=== PATIENT | male | born 1940 | race Caucasian/White ===

== ENCOUNTER → 2018-08-13 05:00 | Outpatient (REF) | payer MEDICARE, SELFPAY ==
[2018-08-13 07:40] LABS: Absolute Lymphocyte Count 0.97 X10^3/ul (0.83-4.51); Absolute Neutrophil Count 4.9 X10^3/uL (2.0-7.7); Basophil# 0.04 X10^3/uL; Basophil% 0.6 % (0-1); Eosinophil# 0.23 X10^3/uL; Eosinophils% 3.3 % (0-5); Hematocrit 31.6 % (40-54); Hemoglobin 9.8 g/dl (13.0-16.5); Lymphocyte # 0.97 X10^3/ul (4.0); Lymphocyte % 13.9 % (19-41); Mean Corpuscular Hgb 28.7 pg (27.0-32.0); Mean Corpuscular Volume 92.4 fL (80-94); Monocyte# 0.84 X10^3/uL; Neutrophil # 4.91 X10^3/uL (2.7-7.7); Neutrophil % 70.1 % (47-70); Platelet Count 302 K/mm3 (150-450); RBC Distribution Width CV 15.8 % (11.6-14.6); RBC Distribution Width SD 53.4 fl (35.1-43.9); Red Blood Count 3.42 M/mm3 (4.6-6.2)
[2018-08-13 07:41] LABS: POSITIVE COUNT NO; POSITIVE DIFFERENTIAL NO; POSITIVE MORPHOLOGY NO
== END ==
LOC: OLS.DANBUR 05:00
PROVIDERS: Visit Provider Family Medicine
DX: D64.9 Anemia, unspecified (principal); E11.9 Type 2 diabetes mellitus without complications; Z86.73 Personal history of transient ischemic attack (TIA), and cerebral infarction without residual deficits
CPT/HCPCS: 36415; 85025

== ENCOUNTER → 2018-08-17 05:00 | Outpatient (REF) | payer MEDICARE, SELFPAY ==
[2018-08-17 08:33] LABS: Absolute Lymphocyte Count 0.92 X10^3/ul (0.83-4.51); Absolute Neutrophil Count 4.4 X10^3/uL (2.0-7.7); Basophil# 0.03 X10^3/uL; Basophil% 0.5 % (0-1); Eosinophil# 0.24 X10^3/uL; Eosinophils% 3.8 % (0-5); Hematocrit 28.2 % (40-54); Hemoglobin 9.1 g/dl (13.0-16.5); Lymphocyte # 0.92 X10^3/ul (4.0); Lymphocyte % 14.4 % (19-41); Mean Corp Hgb Conc 32.3 g/gl (32-36); Mean Corpuscular Hgb 29.2 pg (27.0-32.0); Mean Corpuscular Volume 90.4 fL (80-94); Mean Platelet Vol. 11.3 fl (6.2-12.0); Monocyte# 0.75 X10^3/uL; Monocyte% 11.7 % (0-10); Neutrophil # 4.43 X10^3/uL (2.7-7.7); Neutrophil % 69.3 % (47-70); Platelet Count 245 K/mm3 (150-450); RBC Distribution Width CV 15.5 % (11.6-14.6); RBC Distribution Width SD 51.2 fl (35.1-43.9); Red Blood Count 3.12 M/mm3 (4.6-6.2); White Blood Count 6.4 K/mm3 (4.4-11.0)
[2018-08-17 08:34] LABS: POSITIVE COUNT NO; POSITIVE DIFFERENTIAL NO; POSITIVE MORPHOLOGY NO
== END ==
LOC: OLS.DANBUR 05:00
DX: E11.9 Type 2 diabetes mellitus without complications (principal); Z95.5 Presence of coronary angioplasty implant and graft; Z96.0 Presence of urogenital implants; Z95.1 Presence of aortocoronary bypass graft; Z86.73 Personal history of transient ischemic attack (TIA), and cerebral infarction without residual deficits
CPT/HCPCS: 36415; 85025

== ENCOUNTER → 2018-08-26 05:00 | Outpatient (REF) | payer MEDICARE, SELFPAY ==
[2018-08-26 08:32] LABS: Absolute Lymphocyte Count 0.75 X10^3/ul (0.83-4.51); Basophil# 0.03 X10^3/uL; Basophil% 0.5 % (0-1); Eosinophils% 4.5 % (0-5); Hematocrit 27.4 % (40-54); Hemoglobin 8.6 g/dl (13.0-16.5); Lymphocyte # 0.75 X10^3/ul (4.0); Lymphocyte % 11.3 % (19-41); Mean Corp Hgb Conc 31.4 g/gl (32-36); Mean Corpuscular Hgb 28.1 pg (27.0-32.0); Mean Corpuscular Volume 89.5 fL (80-94); Monocyte# 0.59 X10^3/uL; Monocyte% 8.9 % (0-10); Neutrophil # 4.98 X10^3/uL (2.7-7.7); Neutrophil % 74.6 % (47-70); Platelet Count 278 K/mm3 (150-450); RBC Distribution Width CV 15.5 % (11.6-14.6); RBC Distribution Width SD 50.3 fl (35.1-43.9); Red Blood Count 3.06 M/mm3 (4.6-6.2); White Blood Count 6.7 K/mm3 (4.4-11.0)
[2018-08-26 08:44] LABS: ALB/GLOB Ratio 1.1 RATIO (0.9-2.4); AST(SGOT) 18 U/L (15-37); Alanine Aminotransfer ALT/SGPT 27 U/L (16-61); Albumin, Serum 3.1 g/dL (3.2-5.0); Alkaline Phosphatase 76 U/L (45-117); BUN 22 mg/dL (7-18); BUN/Creat Ratio 17.3 RATIO (10-20); Calcium,Total 8.3 mg/dL (8.5-10.1); Creatinine, Serum 1.27 mg/dL (0.70-1.30); EST Glomerular Filtration Rate 58 mL/min (>60); Est Glom Filt Rate - Afr Amer 70 mL/min (>60); Globulin 2.9 g/dL (2.2-4.2); Glucose 136 mg/dL (74-106); POSITIVE COUNT NO; POSITIVE DIFFERENTIAL NO; POSITIVE MORPHOLOGY NO; Potassium 3.5 mmol/L (3.5-5.1); Sodium Level 141 mmol/L (136-145)
[2018-08-26 08:45] LABS: Anion Gap 10 (5-15); Chloride 109 mmol/L (98-107)
== END ==
LOC: OLS.DANBUR 05:00
PROVIDERS: Visit Provider Family Medicine
DX: E11.9 Type 2 diabetes mellitus without complications (principal); Z95.5 Presence of coronary angioplasty implant and graft; Z96.0 Presence of urogenital implants; Z95.1 Presence of aortocoronary bypass graft; Z86.73 Personal history of transient ischemic attack (TIA), and cerebral infarction without residual deficits
CPT/HCPCS: 36415; 80053; 85025

== ENCOUNTER → 2018-09-02 05:00 | Outpatient (REF) | payer MEDICARE, SELFPAY ==
[2018-09-02 09:36] LABS: Absolute Lymphocyte Count 0.88 X10^3/ul (0.83-4.51); Absolute Neutrophil Count 7.2 X10^3/uL (2.0-7.7); Basophil# 0.03 X10^3/uL; Basophil% 0.3 % (0-1); Eosinophil# 0.36 X10^3/uL; Eosinophils% 3.8 % (0-5); Hematocrit 30.9 % (40-54); Hemoglobin 9.6 g/dl (13.0-16.5); Lymphocyte # 0.88 X10^3/ul (4.0); Lymphocyte % 9.3 % (19-41); Mean Corp Hgb Conc 31.1 g/gl (32-36); Mean Corpuscular Hgb 28.1 pg (27.0-32.0); Mean Corpuscular Volume 90.4 fL (80-94); Mean Platelet Vol. 10.8 fl (6.2-12.0); Monocyte# 0.91 X10^3/uL; Monocyte% 9.6 % (0-10); Neutrophil # 7.24 X10^3/uL (2.7-7.7); Neutrophil % 76.5 % (47-70); Platelet Count 330 K/mm3 (150-450); RBC Distribution Width CV 15.8 % (11.6-14.6); RBC Distribution Width SD 50.2 fl (35.1-43.9); Red Blood Count 3.42 M/mm3 (4.6-6.2); White Blood Count 9.5 K/mm3 (4.4-11.0)
[2018-09-02 09:51] LABS: POSITIVE COUNT NO; POSITIVE DIFFERENTIAL NO; POSITIVE MORPHOLOGY NO
== END ==
LOC: OLS.DANBUR 05:00
DX: E11.9 Type 2 diabetes mellitus without complications (principal); Z95.5 Presence of coronary angioplasty implant and graft; Z96.0 Presence of urogenital implants; Z95.1 Presence of aortocoronary bypass graft
CPT/HCPCS: 36415; 85025

== ENCOUNTER → 2018-09-09 05:00 | Outpatient (REF) | payer MEDICARE, SELFPAY ==
[2018-09-09 08:06] LABS: Absolute Lymphocyte Count 1.17 X10^3/ul (0.83-4.51); Basophil# 0.03 X10^3/uL; Basophil% 0.4 % (0-1); Eosinophil# 0.34 X10^3/uL; Eosinophils% 4.6 % (0-5); Hematocrit 27.4 % (40-54); Hemoglobin 8.4 g/dl (13.0-16.5); Lymphocyte # 1.17 X10^3/ul (4.0); Lymphocyte % 15.9 % (19-41); Mean Corp Hgb Conc 30.7 g/gl (32-36); Mean Corpuscular Hgb 28.3 pg (27.0-32.0); Mean Corpuscular Volume 92.3 fL (80-94); Mean Platelet Vol. 11.4 fl (6.2-12.0); Monocyte# 0.83 X10^3/uL; Monocyte% 11.3 % (0-10); Neutrophil # 4.97 X10^3/uL (2.7-7.7); Neutrophil % 67.4 % (47-70); Platelet Count 309 K/mm3 (150-450); RBC Distribution Width CV 16.5 % (11.6-14.6); Red Blood Count 2.97 M/mm3 (4.6-6.2); White Blood Count 7.4 K/mm3 (4.4-11.0)
[2018-09-09 08:10] LABS: POSITIVE COUNT NO; POSITIVE DIFFERENTIAL NO; POSITIVE MORPHOLOGY NO
== END ==
LOC: OLS.DANBUR 05:00
DX: E11.9 Type 2 diabetes mellitus without complications (principal); Z95.5 Presence of coronary angioplasty implant and graft; Z96.0 Presence of urogenital implants; Z95.1 Presence of aortocoronary bypass graft; Z86.73 Personal history of transient ischemic attack (TIA), and cerebral infarction without residual deficits
CPT/HCPCS: 36415; 85025

== ENCOUNTER → 2019-04-26 05:00 | Outpatient (REF) | payer MEDICARE, SELFPAY ==
[2019-04-26 07:38] LABS: Absolute Lymphocyte Count 0.76 X10^3/uL (0.83-4.51); Absolute Neutrophil Count 7.4 X10^3/uL (2.0-7.7); Basophil# 0.03 X10^3/uL; Basophil% 0.3 % (0-1); Eosinophil# 0.13 X10^3/uL; Eosinophils% 1.4 % (0-5); Hematocrit 23.1 % (40-54); Hemoglobin 6.8 g/dL (13.0-16.5); Lymphocyte # 0.76 X10^3/ul (4.0); Lymphocyte % 8.2 % (19-41); Mean Corp Hgb Conc 29.4 g/dL (32-36); Mean Corpuscular Hgb 30.2 pg (27.0-32.0); Mean Corpuscular Volume 102.7 fL (80-94); Mean Platelet Vol. 11.6 fl (6.2-12.0); Monocyte# 0.95 X10^3/uL; Monocyte% 10.2 % (0-10); NRBC Flagged by Analyzer 0 % (0-5); Neutrophil # 7.35 X10^3/uL (2.7-7.7); Neutrophil % 78.9 % (47-70); Platelet Count 236 K/mm3 (150-450); RBC Distribution Width CV 16.1 % (11.6-14.6); RBC Distribution Width SD 60.4 fl (35.1-43.9); Red Blood Count 2.25 M/mm3 (4.6-6.2); White Blood Count 9.3 K/mm3 (4.4-11.0)
== END ==
LOC: OLS.DANBUR 05:00
DX: D64.9 Anemia, unspecified (principal)
CPT/HCPCS: 36415; 85025

== ENCOUNTER → 2019-04-28 12:32 | Outpatient (CLI) | payer MEDICARE, SELFPAY ==
[2019-04-28] MEDS: Acetaminophen 325 MG Tablet 650 MG PO (13:18)
[2019-04-28 13:22] VITALS: BP 157/55; PULSE 93; RESP 16; TEMP 36.4; O2SAT 100; BMI 25.0
[2019-04-28 13:42] VITALS: BP 91/51; PULSE 96; RESP 16; TEMP 36.5; O2SAT 100
[2019-04-28 14:42] VITALS: BP 92/63; PULSE 92; RESP 16; TEMP 36.6
[2019-04-28] MEDS: DiphenhydrAMINE 50 MG/ML Syringe 25 MG IV (14:49)
[2019-04-28 15:42] VITALS: BP 96/69; PULSE 72; RESP 16; TEMP 36.7; O2SAT 100
== END ==
PROVIDERS: Family Provider Family Medicine; PCP Family Medicine
DX: D50.8 Other iron deficiency anemias (principal); I20.9 Angina pectoris, unspecified; K92.2 Gastrointestinal hemorrhage, unspecified; E11.9 Type 2 diabetes mellitus without complications
CPT/HCPCS: 96374; 36430; 86850; 86900; 86901; 86920; 86922; J7040; P9016; A4216

== ENCOUNTER → 2019-04-29 05:00 | Outpatient (REF) | payer MEDICARE, SELFPAY ==
[2019-04-28 13:22] VITALS: BMI 25.0
[2019-04-29 05:28] LABS: Absolute Lymphocyte Count 0.77 X10^3/uL (0.83-4.51); Absolute Neutrophil Count 7.1 X10^3/uL (2.0-7.7); Basophil# 0.03 X10^3/uL; Basophil% 0.3 % (0-1); Eosinophil# 0.18 X10^3/uL; Hematocrit 23.6 % (40-54); Hemoglobin 7.2 g/dL (13.0-16.5); Lymphocyte # 0.77 X10^3/ul (4.0); Lymphocyte % 8.6 % (19-41); Mean Corp Hgb Conc 30.5 g/dL (32-36); Mean Corpuscular Hgb 30.8 pg (27.0-32.0); Mean Corpuscular Volume 100.9 fL (80-94); Mean Platelet Vol. 11.6 fl (6.2-12.0); Monocyte# 0.77 X10^3/uL; Monocyte% 8.6 % (0-10); NRBC Flagged by Analyzer 0 % (0-5); Neutrophil # 7.11 X10^3/uL (2.7-7.7); Neutrophil % 79.8 % (47-70); POSITIVE MORPHOLOGY YES; Platelet Count 195 K/mm3 (150-450); RBC Distribution Width CV 18.6 % (11.6-14.6); RBC Distribution Width SD 67.8 fl (35.1-43.9); Red Blood Count 2.34 M/mm3 (4.6-6.2); White Blood Count 8.9 K/mm3 (4.4-11.0)
[2019-04-29 05:31] LABS: Differential Indicated SCAN CRITERIA MET
[2019-04-29 06:38] LABS: Differential Comment SCANNED; Macrocytosis 2+; Microcytosis 1+
== END ==
LOC: OLS.DANBUR 05:00
PROVIDERS: Visit Provider Family Medicine
DX: E11.9 Type 2 diabetes mellitus without complications (principal)
CPT/HCPCS: 36415; 85025; 86850; 86900; 86901; 86920; 86922

== ENCOUNTER 2019-04-30 07:46 | Outpatient (CLI) | payer MEDICARE, SELFPAY ==
[2019-04-28 13:22] VITALS: BMI 25.0
[2019-04-30] MEDS: Acetaminophen 325 MG Tablet 650 MG PO (10:20)
[2019-04-30 10:21] VITALS: BMI 26.6
[2019-04-30] MEDS: DiphenhydrAMINE 50 MG/ML Syringe 25 MG IV (11:16)
[2019-04-30] MEDS: 0.9% Saline Lock 10 ML Syringe IV (11:17)
[2019-04-30 11:27] VITALS: BP 92/62; PULSE 92; RESP 18; TEMP 36.6; O2SAT 95
[2019-04-30 11:42] VITALS: BP 105/58; PULSE 91; RESP 18; TEMP 36.7; O2SAT 96
[2019-04-30 12:40] VITALS: BP 97/57; PULSE 84; RESP 16; TEMP 36.9; O2SAT 96
[2019-04-30 13:42] VITALS: BP 115/66; PULSE 94; RESP 18; TEMP 37.3; O2SAT 97
[2019-04-30 13:45] VITALS: BP 97/58; PULSE 88; RESP 18; TEMP 37.3; O2SAT 94
== END 2019-04-30 15:00 | disposition home or self-care (01) ==
LOC: MEDOUTP 07:48 → MS3 07:51
PROVIDERS: Family Provider Family Medicine; PCP Family Medicine
DX: D50.8 Other iron deficiency anemias (principal); I20.9 Angina pectoris, unspecified; K92.2 Gastrointestinal hemorrhage, unspecified
CPT/HCPCS: 96374; 36415; 36430; 86850; 86900; 86901; 86920; 86922; J7040; P9016; A4216

== ENCOUNTER → 2019-05-05 05:00 | Outpatient (REF) | payer MEDICARE, SELFPAY ==
[2019-04-30 10:21] VITALS: BMI 26.6
[2019-05-05 08:29] LABS: Absolute Lymphocyte Count 0.57 X10^3/uL (0.83-4.51); Absolute Neutrophil Count 6.1 X10^3/uL (2.0-7.7); Basophil# 0.03 X10^3/uL; Basophil% 0.4 % (0-1); Eosinophils% 2.6 % (0-5); Hemoglobin 7.9 g/dL (13.0-16.5); Lymphocyte # 0.57 X10^3/ul (4.0); Lymphocyte % 7.5 % (19-41); Mean Corp Hgb Conc 30.4 g/dL (32-36); Mean Platelet Vol. 11.8 fl (6.2-12.0); Monocyte# 0.69 X10^3/uL; Monocyte% 9.1 % (0-10); NRBC Flagged by Analyzer 0 % (0-5); Neutrophil # 6.05 X10^3/uL (2.7-7.7); Neutrophil % 79.6 % (47-70); POSITIVE DIFFERENTIAL YES; POSITIVE MORPHOLOGY YES; Platelet Count 213 K/mm3 (150-450); RBC Distribution Width CV 17.2 % (11.6-14.6); RBC Distribution Width SD 65.3 fl (35.1-43.9); Red Blood Count 2.55 M/mm3 (4.6-6.2); White Blood Count 7.6 K/mm3 (4.4-11.0)
[2019-05-05 08:45] LABS: Differential Indicated SCAN CRITERIA MET
[2019-05-05 09:12] LABS: Anisocytosis 1+; Hypochromasia 2+; Macrocytosis 1+; Platelet Estimate ADEQUATE (ADEQ); Schistocytes 1+
== END ==
LOC: OLS.DANBUR 05:00
PROVIDERS: Family Provider Family Medicine; PCP Family Medicine
DX: E11.9 Type 2 diabetes mellitus without complications (principal); Q28.9 Congenital malformation of circulatory system, unspecified; Q24.9 Congenital malformation of heart, unspecified
CPT/HCPCS: 36415; 85025

== ENCOUNTER → 2019-05-12 05:00 | Outpatient (REF) | payer MEDICARE, SELFPAY ==
[2019-04-30 10:21] VITALS: BMI 26.6
[2019-05-12 07:19] LABS: Absolute Lymphocyte Count 0.46 X10^3/uL (0.83-4.51); Absolute Neutrophil Count 7.6 X10^3/uL (2.0-7.7); Basophil# 0.04 X10^3/uL; Basophil% 0.4 % (0-1); Eosinophil# 0.19 X10^3/uL; Eosinophils% 2.1 % (0-5); Hematocrit 29.2 % (40-54); Hemoglobin 9.1 g/dL (13.0-16.5); Lymphocyte # 0.46 X10^3/ul (4.0); Lymphocyte % 5.1 % (19-41); Mean Corp Hgb Conc 31.2 g/dL (32-36); Mean Corpuscular Hgb 31.5 pg (27.0-32.0); Mean Platelet Vol. 11.9 fl (6.2-12.0); Monocyte# 0.77 X10^3/uL; Monocyte% 8.5 % (0-10); NRBC Flagged by Analyzer 0 % (0-5); Neutrophil # 7.57 X10^3/uL (2.7-7.7); Neutrophil % 83.2 % (47-70); POSITIVE DIFFERENTIAL YES; Platelet Count 226 K/mm3 (150-450); RBC Distribution Width CV 17.1 % (11.6-14.6); RBC Distribution Width SD 63.2 fl (35.1-43.9); Red Blood Count 2.89 M/mm3 (4.6-6.2); White Blood Count 9.1 K/mm3 (4.4-11.0)
[2019-05-12 07:24] LABS: Differential Indicated SCAN CRITERIA MET
== END ==
LOC: OLS.DANBUR 05:00
PROVIDERS: Family Provider Family Medicine; PCP Family Medicine
DX: E11.9 Type 2 diabetes mellitus without complications (principal); Z95.5 Presence of coronary angioplasty implant and graft; Z87.74 Personal history of (corrected) congenital malformations of heart and circulatory system; Z95.1 Presence of aortocoronary bypass graft; Z86.73 Personal history of transient ischemic attack (TIA), and cerebral infarction without residual deficits; Z92.89 Personal history of other medical treatment
CPT/HCPCS: 36415; 85025

== ENCOUNTER → 2019-05-30 05:00 | Outpatient (REF) | payer MEDICARE, SELFPAY ==
[2019-04-30 10:21] VITALS: BMI 26.6
[2019-05-30 07:30] LABS: Absolute Lymphocyte Count 0.39 X10^3/uL (0.83-4.51); Basophil# 0.03 X10^3/uL; Basophil% 0.4 % (0-1); Eosinophil# 0.15 X10^3/uL; Eosinophils% 1.8 % (0-5); Hematocrit 21.7 % (40-54); Hemoglobin 6.4 g/dL (13.0-16.5); Lymphocyte # 0.39 X10^3/ul (4.0); Lymphocyte % 4.7 % (19-41); Mean Corp Hgb Conc 29.5 g/dL (32-36); Mean Corpuscular Hgb 31.5 pg (27.0-32.0); Mean Corpuscular Volume 106.9 fL (80-94); Mean Platelet Vol. 11.7 fl (6.2-12.0); Monocyte# 0.73 X10^3/uL; Monocyte% 8.7 % (0-10); NRBC Flagged by Analyzer 0 % (0-5); Neutrophil # 6.98 X10^3/uL (2.7-7.7); Neutrophil % 83.4 % (47-70); POSITIVE DIFFERENTIAL YES; POSITIVE MORPHOLOGY YES; Platelet Count 217 K/mm3 (150-450); RBC Distribution Width CV 18.3 % (11.6-14.6); RBC Distribution Width SD 70.7 fl (35.1-43.9); RET-HE 33.4 pg (30-35); Red Blood Count 2.03 M/mm3 (4.6-6.2); Reticulocyte Count 9.01 % (0.5-1.5); White Blood Count 8.4 K/mm3 (4.4-11.0)
[2019-05-30 07:38] LABS: Ferritin 170 ng/mL (26-388); Iron 48 ug/dL (65-175); Iron Binding Capacity,Total 267 ug/dL (250-450)
[2019-05-30 07:41] LABS: Differential Indicated SCAN CRITERIA MET
[2019-05-30 08:12] LABS: Anisocytosis 1+
== END ==
LOC: OLS.DANBUR 05:00
PROVIDERS: Family Provider Family Medicine; PCP Family Medicine
DX: D64.9 Anemia, unspecified (principal); K92.2 Gastrointestinal hemorrhage, unspecified
CPT/HCPCS: 36415; 82728; 83540; 83550; 85025; 85045

== ENCOUNTER → 2019-06-09 05:00 | Outpatient (REF) | payer MEDICARE, SELFPAY ==
[2019-06-09 07:32] LABS: Absolute Lymphocyte Count 0.51 X10^3/uL (0.83-4.51); Absolute Neutrophil Count 5.6 X10^3/uL (2.0-7.7); Basophil# 0.03 X10^3/uL; Basophil% 0.4 % (0-1); Eosinophil# 0.19 X10^3/uL; Eosinophils% 2.7 % (0-5); Hemoglobin 7.9 g/dL (13.0-16.5); Lymphocyte # 0.51 X10^3/ul (4.0); Lymphocyte % 7.4 % (19-41); Mean Corp Hgb Conc 29.3 g/dL (32-36); Mean Corpuscular Volume 109.3 fL (80-94); Mean Platelet Vol. 12.1 fl (6.2-12.0); Monocyte# 0.58 X10^3/uL; Monocyte% 8.4 % (0-10); NRBC Flagged by Analyzer 0 % (0-5); Neutrophil # 5.56 X10^3/uL (2.7-7.7); Neutrophil % 80.4 % (47-70); POSITIVE DIFFERENTIAL YES; POSITIVE MORPHOLOGY YES; Platelet Count 192 K/mm3 (150-450); RBC Distribution Width CV 17.2 % (11.6-14.6); RBC Distribution Width SD 69.4 fl (35.1-43.9); Red Blood Count 2.47 M/mm3 (4.6-6.2); White Blood Count 6.9 K/mm3 (4.4-11.0)
[2019-06-09 07:39] LABS: Differential Indicated SCAN CRITERIA MET
[2019-06-09 08:31] LABS: Anisocytosis 1+; Hypochromasia 2+; Macrocytosis 1+; Platelet Estimate ADEQUATE (ADEQ); Schistocytes 1+
== END ==
LOC: OLS.DANBUR 05:00
PROVIDERS: PCP Family Medicine
DX: D64.9 Anemia, unspecified (principal); Z87.74 Personal history of (corrected) congenital malformations of heart and circulatory system
CPT/HCPCS: 36415; 85025

== ENCOUNTER → 2019-06-16 10:30 | Outpatient (REF) | payer MEDICARE, SELFPAY ==
[2019-06-16 12:11] LABS: Absolute Lymphocyte Count 0.39 X10^3/uL (0.83-4.51); Absolute Neutrophil Count 6.3 X10^3/uL (2.0-7.7); Basophil# 0.03 X10^3/uL; Basophil% 0.4 % (0-1); Eosinophil# 0.13 X10^3/uL; Eosinophils% 1.7 % (0-5); Hematocrit 31.3 % (40-54); Hemoglobin 9.3 g/dL (13.0-16.5); Lymphocyte # 0.39 X10^3/ul (4.0); Lymphocyte % 5.2 % (19-41); Mean Corp Hgb Conc 29.7 g/dL (32-36); Mean Corpuscular Hgb 32.1 pg (27.0-32.0); Mean Corpuscular Volume 107.9 fL (80-94); Mean Platelet Vol. 12.1 fl (6.2-12.0); NRBC Flagged by Analyzer 0 % (0-5); Neutrophil # 6.32 X10^3/uL (2.7-7.7); Neutrophil % 84.2 % (47-70); POSITIVE DIFFERENTIAL YES; POSITIVE MORPHOLOGY YES; Platelet Count 196 K/mm3 (150-450); RBC Distribution Width CV 16.8 % (11.6-14.6); RBC Distribution Width SD 66.3 fl (35.1-43.9); White Blood Count 7.5 K/mm3 (4.4-11.0)
[2019-06-16 12:12] LABS: Differential Indicated SCAN CRITERIA MET
== END ==
LOC: OLS.DANBUR 10:30
PROVIDERS: PCP Family Medicine
DX: D64.9 Anemia, unspecified (principal); Z87.74 Personal history of (corrected) congenital malformations of heart and circulatory system
CPT/HCPCS: 36415; 85025

== ENCOUNTER → 2019-06-23 05:00 | Outpatient (REF) | payer MEDICARE, SELFPAY ==
[2019-06-23 08:04] LABS: Absolute Lymphocyte Count 0.35 X10^3/uL (0.83-4.51); Basophil# 0.03 X10^3/uL; Basophil% 0.4 % (0-1); Eosinophil# 0.14 X10^3/uL; Hematocrit 26.5 % (40-54); Lymphocyte # 0.35 X10^3/ul (4.0); Lymphocyte % 4.9 % (19-41); Mean Corp Hgb Conc 30.2 g/dL (32-36); Mean Platelet Vol. 12.2 fl (6.2-12.0); Monocyte# 0.58 X10^3/uL; Monocyte% 8.1 % (0-10); NRBC Flagged by Analyzer 0 % (0-5); Neutrophil # 6.01 X10^3/uL (2.7-7.7); Neutrophil % 83.8 % (47-70); POSITIVE DIFFERENTIAL YES; Platelet Count 195 K/mm3 (150-450); RBC Distribution Width CV 15.6 % (11.6-14.6); RBC Distribution Width SD 61.2 fl (35.1-43.9); White Blood Count 7.2 K/mm3 (4.4-11.0)
[2019-06-23 08:20] LABS: Differential Indicated SCAN CRITERIA MET
== END ==
LOC: OLS.DANBUR 05:00
PROVIDERS: PCP Family Medicine
DX: Z87.74 Personal history of (corrected) congenital malformations of heart and circulatory system (principal)
CPT/HCPCS: 36415; 85025

== ENCOUNTER → 2019-06-30 05:00 | Outpatient (REF) | payer MEDICARE, SELFPAY ==
[2019-06-30 07:10] LABS: Absolute Lymphocyte Count 0.38 X10^3/uL (0.83-4.51); Absolute Neutrophil Count 6.9 X10^3/uL (2.0-7.7); Basophil# 0.03 X10^3/uL; Basophil% 0.4 % (0-1); Eosinophil# 0.15 X10^3/uL; Eosinophils% 1.8 % (0-5); Hematocrit 28.5 % (40-54); Hemoglobin 8.4 g/dL (13.0-16.5); Lymphocyte # 0.38 X10^3/ul (4.0); Lymphocyte % 4.6 % (19-41); Mean Corp Hgb Conc 29.5 g/dL (32-36); Mean Corpuscular Hgb 31.3 pg (27.0-32.0); Mean Corpuscular Volume 106.3 fL (80-94); Mean Platelet Vol. 12.5 fl (6.2-12.0); Monocyte# 0.67 X10^3/uL; Monocyte% 8.2 % (0-10); NRBC Flagged by Analyzer 0 % (0-5); Neutrophil # 6.91 X10^3/uL (2.7-7.7); Neutrophil % 84.1 % (47-70); POSITIVE DIFFERENTIAL YES; POSITIVE MORPHOLOGY YES; Platelet Count 203 K/mm3 (150-450); RBC Distribution Width CV 17.1 % (11.6-14.6); RBC Distribution Width SD 65.9 fl (35.1-43.9); Red Blood Count 2.68 M/mm3 (4.6-6.2); White Blood Count 8.2 K/mm3 (4.4-11.0)
[2019-06-30 07:11] LABS: Differential Indicated SCAN CRITERIA MET
[2019-06-30 07:20] LABS: Platelet Estimate ADEQUATE (ADEQ)
[2019-06-30 07:24] LABS: Anisocytosis 1+; Polychromasia 1+
== END ==
LOC: OLS.DANBUR 05:00
PROVIDERS: PCP Family Medicine
DX: Z87.74 Personal history of (corrected) congenital malformations of heart and circulatory system (principal)
CPT/HCPCS: 36415; 85025

== ENCOUNTER → 2019-07-07 05:00 | Outpatient (REF) | payer MEDICARE, SELFPAY ==
[2019-07-07 07:53] LABS: Absolute Lymphocyte Count 0.37 X10^3/uL (0.83-4.51); Absolute Neutrophil Count 7.6 X10^3/uL (2.0-7.7); Basophil# 0.03 X10^3/uL; Basophil% 0.3 % (0-1); Eosinophils% 1.1 % (0-5); Hematocrit 25.2 % (40-54); Hemoglobin 7.4 g/dL (13.0-16.5); Lymphocyte # 0.37 X10^3/ul (4.0); Lymphocyte % 4.1 % (19-41); Mean Corp Hgb Conc 29.4 g/dL (32-36); Mean Corpuscular Hgb 31.1 pg (27.0-32.0); Mean Corpuscular Volume 105.9 fL (80-94); Mean Platelet Vol. 12.7 fl (6.2-12.0); Monocyte# 0.81 X10^3/uL; NRBC Flagged by Analyzer 0 % (0-5); Neutrophil # 7.62 X10^3/uL (2.7-7.7); Neutrophil % 84.6 % (47-70); POSITIVE DIFFERENTIAL YES; POSITIVE MORPHOLOGY YES; Platelet Count 198 K/mm3 (150-450); RBC Distribution Width CV 16.8 % (11.6-14.6); RBC Distribution Width SD 65.2 fl (35.1-43.9); Red Blood Count 2.38 M/mm3 (4.6-6.2)
[2019-07-07 07:58] LABS: Differential Indicated SCAN CRITERIA MET
[2019-07-07 09:15] LABS: Anisocytosis 1+
== END ==
LOC: OLS.DANBUR 05:00
PROVIDERS: PCP Family Medicine
DX: D64.9 Anemia, unspecified (principal); E11.9 Type 2 diabetes mellitus without complications; Z92.89 Personal history of other medical treatment
CPT/HCPCS: 36415; 85025

== ENCOUNTER → 2019-07-14 05:00 | Outpatient (REF) | payer MEDICARE, SELFPAY ==
[2019-07-14 09:33] LABS: Absolute Lymphocyte Count 1.28 X10^3/uL (0.83-4.51); Absolute Neutrophil Count 6.6 X10^3/uL (2.0-7.7); Basophil# 0.05 X10^3/uL; Basophil% 0.6 % (0-1); Eosinophil# 0.25 X10^3/uL; Eosinophils% 2.8 % (0-5); Hematocrit 19.2 % (40-54); Lymphocyte # 1.28 X10^3/ul (4.0); Lymphocyte % 14.3 % (19-41); Mean Corp Hgb Conc 30.2 g/dL (32-36); Mean Corpuscular Volume 92.8 fL (80-94); Mean Platelet Vol. 9.8 fl (6.2-12.0); Monocyte# 0.77 X10^3/uL; Monocyte% 8.6 % (0-10); NRBC Flagged by Analyzer 0 % (0-5); Neutrophil % 73.4 % (47-70); POSITIVE COUNT YES; Platelet Count 564 K/mm3 (150-450); RBC Distribution Width CV 12.8 % (11.6-14.6); RBC Distribution Width SD 42.5 fl (35.1-43.9); Red Blood Count 2.07 M/mm3 (4.6-6.2)
[2019-07-14 09:42] LABS: Differential Indicated SCAN CRITERIA MET
[2019-07-14 09:44] LABS: Hemoglobin 5.8 g/dL (13.0-16.5)
[2019-07-14 10:01] LABS: Differential Comment SCANNED
[2019-07-15 10:36] LABS: Pathologist Review Reviewed
== END ==
LOC: OLS.DANBUR 05:00
PROVIDERS: PCP Family Medicine
DX: D64.9 Anemia, unspecified (principal); E11.9 Type 2 diabetes mellitus without complications; Z87.898 Personal history of other specified conditions
CPT/HCPCS: 36415; 85025

== ENCOUNTER → 2019-07-19 12:41 | Outpatient (CLI) | payer MEDICARE, SELFPAY ==
--- NOTE | 2019-07-19 12:50 | ECHOD_ITS ---
Reason For Study: Fugax Procedure This was a 2D Doppler, Color Flow transthoracic echocardiogram. The exam was of adequate technical quality. Exam performed in department. Left Ventricle Normal LV size. D shaped septum in systole and diastole. Severe concentric left ventricular hypertrophy. Mild segmental systolic dysfunction (see wall motion). The estimated ejection fraction is 45 %. Posterior-Basal: Hypokinetic. Infero-Basal: Akinetic. Basal inferoseptal: Hypokinetic. Basal anteroseptal: Hypokinetic. Mid-Posterior: Hypokinetic. Mid-Inferior: Hypokinetic. Mid- inferoseptal : Hypokinetic. Inferior Tye : Hypokinetic. Lateral Tye : Hypokinetic. Septal Tye : Akinetic. Right Ventricle Normal RV size. Normal systolic function. Atria The left atrium is mildly enlarged. Normal right atrium. No doppler evidence for ASD. Mitral Valve Moderate mitral valve stenosis. Stable appearing bioprosthetic mitral valve apparatus. Moderate (2+) transvalvular insufficiency of the mitral valve. Tricuspid Valve Normal tricuspid valve. Moderate (2+) tricuspid valve insufficiency. Right ventricular systolic pressure estimated to be 69 mmHg. Aortic Valve Trisinus/trileaflet aortic valve. Moderate diffuse aortic valve thickening. Mild aortic stenosis. Pulmonic Valve The pulmonic valve is not well visualized. Trivial pulmonic valve insufficiency. Great Vessels Normal sized aortic root. Calcified aortic root. Pericardium/Pleural No pericardial effusion. MMode/2D Measurements & Calculations LVIDd: 4.9 cm IVSd: 1.7 cm LVOT diam: 2.0 cm LVIDs: 4.1 cm LVPWd: 1.8 cm LVOT area: 3.0 cm2 FS: 15.7 % Ao root diam: 3.1 cm LVAd ap4: 39.9 cm2 SV(MOD-sp4): 67.2 ml LA dimension: 4.4 cm EDV(MOD-sp4): 132.4 ml EDV(sp4-el): 142.0 ml LVAs ap4: 26.7 cm2 ESV(MOD-sp4): 65.2 ml ESV(sp4-el): 69.1 ml EF(MOD-sp4): 50.8 % EF(sp4-el): 51.3 % SV(sp4-el): 72.8 ml Time Measurements MV dec time: 0.31 sec Doppler Measurements & Calculations MV E max rommel: 197.1 cm/sec Lat Peak E' Rommel: 5.8 cm/sec Med Peak E' Rommel: 4.1 cm/sec MV A max rommel: 130.7 cm/sec E/E' lat: 33.9 E/E' med: 47.7 MV E/A: 1.5 MV V2 max: 222.5 cm/sec MV P1/2t max rommel: 223.4 cm/sec Ao V2 max: 109.5 cm/sec MV max P.8 mmHg MV P1/2t: 87.8 msec Ao max P.8 mmHg MV V2 mean: 118.8 cm/sec MV dec slope: 745.0 cm/sec2 Ao V2 mean: 74.1 cm/sec MV mean P.0 mmHg Ao mean P.5 mmHg MV V2 VTI: 52.4 cm MVA(P1/2t): 2.5 cm2 Ao V2 VTI: 20.1 cm MVA(VTI): 0.80 cm2 JUDIE(I,D): 2.1 cm2 JUDIE(V,D): 1.9 cm2 LV V1 max: 68.8 cm/sec MR max rommel: 461.3 cm/sec SV(LVOT): 41.9 ml LV V1 max P.9 mmHg MR max P.1 mmHg LV V1 mean P.91 mmHg MR mean rommel: 356.4 cm/sec LV V1 mean: 44.2 cm/sec MR mean P.2 mmHg LV V1 VTI: 14.0 cm MR VTI: 134.9 cm PA V2 max: 89.3 cm/sec TR max rommel: 367.7 cm/sec TR max P.1 mmHg Interpretation Summary Mild segmental systolic dysfunction (see wall motion). The estimated ejection fraction is 45 %. D shaped septum in systole and diastole. Severe concentric left ventricular hypertrophy. The left atrium is mildly enlarged. Stable appearing bioprosthetic mitral valve apparatus. Moderate mitral valve stenosis. Moderate (2+) transvalvular insufficiency of the mitral valve. Moderate (2+) tricuspid valve insufficiency. Mild aortic stenosis. Trivial pulmonic valve insufficiency. Calcified aortic root. Right ventricular systolic pressure estimated to be 69 mmHg c/w pulmonary hypertension. Transmitral diastolic flow velocities suggest diastolic dysfunction (pseudonormal pattern). Ordering Physician: Donovan Rain Referring Physician: Donovan Rain Performed By: David Castorena RCS
--- NOTE | 2019-07-19 12:52 | CDU_ITS ---
Reason For Study: amaurosis fugax Rt. Velocities/BP Lt. Velocities/BP Prox CCA 106.0/18.2 cm/sec. Prox CCA 90.0/24.3 cm/sec. Mid CCA 154.3/13.8 cm/sec. Mid CCA 102.8/22.5 cm/sec. Dist CCA 145.5/24.8 cm/sec. Dist CCA 82.7/24.3 cm/sec. Prox ICA 182.9/44.6 cm/sec. Prox ICA 254.6/65.5 cm/sec. Mid ICA 149.9/38.0 cm/sec. Mid ICA 223.5/52.6 cm/sec. Dist ICA 158.7/31.4 cm/sec. Dist ICA 93.7/33.4 cm/sec. Rt. ICA/CCA = 1.2. Lt. ICA/CCA = 2.5. Prox ECA 178.5/9.4 cm/sec. Prox ECA 206.9/5.0 cm/sec. Rt. Vert. 90.7/40.2 cm/sec. Lt. Vert. 90.0 cm/sec. Right Extracranial There is homogeneous, smooth atherosclerotic plaque noted in the right common carotid artery. There is heterogeneous, irregular atherosclerotic plaque noted in the right internal carotid artery. The right internal carotid artery is not well visualized. There is heterogeneous, irregular atherosclerotic plaque noted in the right external carotid artery. The right external carotid artery is not well visualized. Antegrade flow is noted in the right vertebral artery. Left Extracranial There is heterogeneous, irregular atherosclerotic plaque noted in the left common carotid artery. There is heterogeneous, irregular atherosclerotic plaque noted in the left internal carotid artery. There is heterogeneous, irregular atherosclerotic plaque noted in the left external carotid artery. The left external carotid artery is not well visualized. Antegrade flow is noted in the left vertebral artery. Procedure Carotid Duplex 97866. Difficult study. Exam performed in department. Interpretation Summary Moderate (50-69%) stenosis right extracranial internal carotid. Moderate (50-69%) stenosis left extracranial internal carotid. Flow within the vertebral arteries is antegrade bilaterally. Elevated velocities in the left external carotid artery are suggestive of stenosis >50%. Ordering Physician: Donovan Rain Performed By: Ron Fowler RVT
== END ==
PROVIDERS: PCP Family Medicine; Referring Provider Ophthalmology; Visit Provider Ophthalmology
DX: G45.3 Amaurosis fugax (principal)
CPT/HCPCS: 93306; 93880

== ENCOUNTER → 2019-07-21 05:00 | Outpatient (REF) | payer MEDICARE, SELFPAY ==
[2019-07-21 08:38] LABS: Absolute Lymphocyte Count 0.38 X10^3/uL (0.83-4.51); Absolute Neutrophil Count 6.6 X10^3/uL (2.0-7.7); Basophil# 0.02 X10^3/uL; Basophil% 0.3 % (0-1); Eosinophil# 0.16 X10^3/uL; Hematocrit 27.7 % (40-54); Hemoglobin 8.2 g/dL (13.0-16.5); Lymphocyte # 0.38 X10^3/ul (4.0); Lymphocyte % 4.8 % (19-41); Mean Corp Hgb Conc 29.6 g/dL (32-36); Mean Corpuscular Hgb 31.5 pg (27.0-32.0); Mean Corpuscular Volume 106.5 fL (80-94); Monocyte% 8.9 % (0-10); NRBC Flagged by Analyzer 0 % (0-5); Neutrophil # 6.59 X10^3/uL (2.7-7.7); Neutrophil % 83.5 % (47-70); POSITIVE DIFFERENTIAL YES; POSITIVE MORPHOLOGY YES; Platelet Count 206 K/mm3 (150-450); RBC Distribution Width CV 17.2 % (11.6-14.6); RBC Distribution Width SD 66.6 fl (35.1-43.9); White Blood Count 7.9 K/mm3 (4.4-11.0)
[2019-07-21 08:41] LABS: Differential Indicated SCAN CRITERIA MET
[2019-07-21 09:58] LABS: Anisocytosis 2+; Differential Comment SCANNED; Macrocytosis 1+; Microcytosis 1+
== END ==
LOC: OLS.DANBUR 05:00
PROVIDERS: PCP Family Medicine
DX: D64.9 Anemia, unspecified (principal); E11.9 Type 2 diabetes mellitus without complications
CPT/HCPCS: 36415; 85025

== ENCOUNTER → 2019-07-27 05:00 | Outpatient (REF) | payer MEDICARE, SELFPAY ==
[2019-07-27 09:04] LABS: Absolute Lymphocyte Count 0.41 X10^3/uL (0.83-4.51); Absolute Neutrophil Count 6.1 X10^3/uL (2.0-7.7); Basophil# 0.02 X10^3/uL; Basophil% 0.3 % (0-1); Eosinophil# 0.19 X10^3/uL; Eosinophils% 2.6 % (0-5); Hemoglobin 7.7 g/dL (13.0-16.5); Lymphocyte # 0.41 X10^3/ul (4.0); Lymphocyte % 5.6 % (19-41); Mean Corp Hgb Conc 29.6 g/dL (32-36); Mean Corpuscular Hgb 31.4 pg (27.0-32.0); Mean Corpuscular Volume 106.1 fL (80-94); Mean Platelet Vol. 12.2 fl (6.2-12.0); Monocyte# 0.66 X10^3/uL; NRBC Flagged by Analyzer 0 % (0-5); Neutrophil # 6.05 X10^3/uL (2.7-7.7); POSITIVE DIFFERENTIAL YES; POSITIVE MORPHOLOGY YES; Platelet Count 190 K/mm3 (150-450); RBC Distribution Width CV 17.1 % (11.6-14.6); RBC Distribution Width SD 66.6 fl (35.1-43.9); Red Blood Count 2.45 M/mm3 (4.6-6.2); White Blood Count 7.4 K/mm3 (4.4-11.0)
[2019-07-27 09:32] LABS: Ferritin 67 ng/mL (26-388); Iron 40 ug/dL (65-175); Iron Binding Capacity,Total 326 ug/dL (250-450)
[2019-07-27 09:57] LABS: Differential Indicated SCAN CRITERIA MET
[2019-07-27 11:02] LABS: Anisocytosis 1+; Macrocytosis 1+; Platelet Estimate ADEQUATE (ADEQ); Platelet Morphology LARGE
== END ==
LOC: OLS.DANBUR 05:00
PROVIDERS: PCP Family Medicine
DX: D64.9 Anemia, unspecified (principal); E11.9 Type 2 diabetes mellitus without complications; D50.8 Other iron deficiency anemias
CPT/HCPCS: 36415; 82728; 83540; 83550; 85025

== ENCOUNTER → 2019-08-04 05:00 | Outpatient (REF) | payer MEDICARE, SELFPAY ==
[2019-08-04 09:29] LABS: Absolute Lymphocyte Count 0.35 X10^3/uL (0.83-4.51); Absolute Neutrophil Count 6.3 X10^3/uL (2.0-7.7); Basophil# 0.02 X10^3/uL; Basophil% 0.3 % (0-1); Eosinophil# 0.12 X10^3/uL; Eosinophils% 1.6 % (0-5); Hematocrit 26.3 % (40-54); Hemoglobin 7.6 g/dL (13.0-16.5); Lymphocyte # 0.35 X10^3/ul (4.0); Lymphocyte % 4.7 % (19-41); Mean Corp Hgb Conc 28.9 g/dL (32-36); Mean Corpuscular Hgb 30.8 pg (27.0-32.0); Mean Corpuscular Volume 106.5 fL (80-94); Mean Platelet Vol. 12.5 fl (6.2-12.0); Monocyte# 0.66 X10^3/uL; Monocyte% 8.8 % (0-10); NRBC Flagged by Analyzer 0 % (0-5); Neutrophil # 6.31 X10^3/uL (2.7-7.7); Neutrophil % 83.9 % (47-70); POSITIVE DIFFERENTIAL YES; POSITIVE MORPHOLOGY YES; Platelet Count 210 K/mm3 (150-450); RBC Distribution Width CV 16.9 % (11.6-14.6); RBC Distribution Width SD 65.1 fl (35.1-43.9); Red Blood Count 2.47 M/mm3 (4.6-6.2); White Blood Count 7.5 K/mm3 (4.4-11.0)
[2019-08-04 09:30] LABS: Differential Indicated SCAN CRITERIA MET
[2019-08-04 09:55] LABS: Anisocytosis 1+
== END ==
LOC: OLS.DANBUR 05:00
PROVIDERS: PCP Family Medicine
DX: D64.9 Anemia, unspecified (principal); E11.9 Type 2 diabetes mellitus without complications; D50.8 Other iron deficiency anemias
CPT/HCPCS: 36415; 85025

== ENCOUNTER → 2019-08-11 05:00 | Outpatient (REF) | payer MEDICARE, SELFPAY ==
[2019-08-11 08:14] LABS: Absolute Lymphocyte Count 0.32 X10^3/uL (0.83-4.51); Absolute Neutrophil Count 9.1 X10^3/uL (2.0-7.7); Basophil# 0.02 X10^3/uL; Basophil% 0.2 % (0-1); Differential Indicated SCAN CRITERIA MET; Eosinophil# 0.01 X10^3/uL; Eosinophils% 0.1 % (0-5); Hematocrit 26.9 % (40-54); Lymphocyte # 0.32 X10^3/ul (4.0); Lymphocyte % 3.1 % (19-41); Mean Corp Hgb Conc 29.7 g/dL (32-36); Mean Corpuscular Hgb 31.7 pg (27.0-32.0); Mean Corpuscular Volume 106.7 fL (80-94); Mean Platelet Vol. 12.7 fl (6.2-12.0); Monocyte# 0.73 X10^3/uL; Monocyte% 7.1 % (0-10); NRBC Flagged by Analyzer 0 % (0-5); Neutrophil # 9.14 X10^3/uL (2.7-7.7); Neutrophil % 88.8 % (47-70); POSITIVE DIFFERENTIAL YES; POSITIVE MORPHOLOGY YES; Platelet Count 194 K/mm3 (150-450); RBC Distribution Width CV 17.1 % (11.6-14.6); RBC Distribution Width SD 66.4 fl (35.1-43.9); Red Blood Count 2.52 M/mm3 (4.6-6.2); White Blood Count 10.3 K/mm3 (4.4-11.0)
[2019-08-11 08:32] LABS: Ferritin 100 ng/mL (26-388); Iron 20 ug/dL (65-175); Iron Binding Capacity,Total 362 ug/dL (250-450)
[2019-08-11 08:36] LABS: Anisocytosis 1+; Hypochromasia 2+; Macrocytosis RARE; Platelet Estimate ADEQUATE (ADEQ); Polychromasia RARE
[2019-08-11 08:37] LABS: Schistocytes RARE
== END ==
LOC: OLS.DANBUR 05:00
PROVIDERS: PCP Family Medicine
DX: E64.9 Sequelae of unspecified nutritional deficiency (principal); E11.9 Type 2 diabetes mellitus without complications
CPT/HCPCS: 36415; 82728; 83540; 83550; 85025